=== PATIENT | male | born 1955 | race Caucasian/White ===

== ENCOUNTER 2018-03-08 09:31 | Outpatient (CLI) | payer OTHER | END 2018-03-08 09:32 | disposition home or self-care (01) | LOC: SC 09:31 | PROVIDERS: ATTEND Internal Medicine Pulmonary Disease | DX: G47.33 Obstructive sleep apnea (adult) (pediatric) (principal) | CPT/HCPCS: 99212; 99213 ==

== ENCOUNTER 2019-07-20 11:18 | Outpatient (CLI) | payer OTHER ==
[2019-07-20 12:21] VITALS: BP 126/72
--- NOTE | 2019-07-20 12:21 | SLEEP CARE CONSULTATION ---
Information from patient questionnaire entered by Radha Boewn. I have reviewed and concur with the information entered by Radha Bowen. This document represents the service I personally performed and the decisions made by me, Jumana Doran, RN, MSN, PREPARATOR. History of Present Illness Previous diagnosis: Moderate, Obstructive Sleep Apnea-Hypopnea Syndrome AHI: 15.8 Reason for follow up: annual (last seen 2018) Equipment type: CPAP Equipment obtained from: [employer] (buying supplies online for decreased cost) Mask style: Full face (Air Fit 10) Mask brand: Resmed Backup mask available: Yes Last cushion change: 6 months ago CPAP Compliance Data - Data Reviewed with Patient Average duration of nightly device use: 7.05 Compliance rate %: 98.9 (180 days) Current pressure setting (cmH2O): 5-10 Humidity settin Heated hose settin Average residual AHI: 1.7 Average large leak: 7 min 46 sec Subjective Patient concerns: denies: aerophagia, mask discomfort, air blowing in eyes, mask leak noise, condensation in mask/hose, nasal congestion, dry mouth, nose, throat, epistaxis Observed to snore while using device: No Current pressure setting perceived as: comfortable On therapy, patient: reports: sleeping better, awakening more refreshed, being more awake and alert during the day, more rested overall. denies: drowsiness while driving Initial [place] Sleepiness Scale score: 8 Current [place] Sleepiness Scale score: 6 Allergies and Home Medications Known drug allergies: No Home medication list reviewed: Yes (no changes ) Allergy and home medication list: ibersarton 150mg daily Review of Systems Review of systems same as previous: Yes Physical Exam Blood Pressure: 126/72 Cuff size: long Heart Rate: 74 O2 Saturation: 97 Height: 5 ft 9 in Weight: 258 lb Weight change since last visit: gained 12 pounds Body Mass Index: 38.0 BMI Classification: Obesity Class 2 Impression and Plan 1. Obstructive Sleep Apnea-Hypopnea Syndrome,moderate, with good treatment compliance and good apnea control. On CPAP therapy, the patient has better sleep quality and is more rested overall. He needs a mask that can be quickly taken o ff when called for work in middle of night. I advised him to consider other mask styles shown for convenience. He was also advised to consider letting [employer] cover supplies. [employer] supply replacement list given and cleaning instructions. He cleans his equipment regularly as noted on sheet. I also discussed replacement of his CPAP device is not due until February this year. If the device starts making louder noise before then or any malfunction, please call to replace earlier. I showed him the new device and how the humidity unit has improved with separate knob for the humidity from starting device. Currently his device the humidity setting can be accidentally be changed. Patient has gained weight. 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 His current autoCPAP pressure will accommodate for weight loss. Patient's apnea severity and rationale for treatment to reduce apnea, improve sleep quality and reduce cardiovascular and cerebrovascular events was reviewed. I also reviewed the benefit of consistent device use of CPAP for hypertension. * Continue CPAP pressure at 5-10 cmH2O * consider new masks * Notify me if snoring with mask or feeling that the pressure is too much or too little * Attempt to lose weight * Call this office if any problems using CPAP * Return for follow up in 1 year , or sooner if concerns arise I spent 100% of this visit face to face with the patient with greater than 50% of this was spent time counseling the patient and coordination of care.
== END 2019-07-20 11:19 | disposition home or self-care (01) ==
LOC: SC 11:18
PROVIDERS: ATTEND Nurse Practitioner Family
DX: G47.33 Obstructive sleep apnea (adult) (pediatric) (principal); E66.9 Obesity, unspecified; Z68.38 Body mass index [BMI] 38.0-38.9, adult
CPT/HCPCS: 99212; 99214

== ENCOUNTER 2020-04-05 07:00 | Outpatient (CLI) | payer OTHER | END 2020-04-05 23:59 | disposition home or self-care (01) | LOC: LAB.R 07:00 | PROVIDERS: ATTEND Pediatrics | DX: Z20.828 Contact with and (suspected) exposure to other viral communicable diseases (principal); Z11.59 Encounter for screening for other viral diseases ==

== ENCOUNTER 2020-07-18 08:45 | Outpatient (CLI) | payer OTHER ==
--- NOTE | 2020-07-18 09:29 | SLEEP CARE CONSULTATION ---
Information from patient questionnaire entered by Radha Bowen. I have reviewed and concur with the information entered by Radha Bowen. This document represents the service I personally performed and the decisions made by , Kelly Evangelista ARNP. History of Present Illness Service Date and Time: 07/18/2020 0845 Previous diagnosis: Moderate, Obstructive Sleep Apnea-Hypopnea Syndrome AHI: 15.8 (in 2014) Reason for follow up: annual (last seen 07/2019) Equipment type: CPAP Equipment obtained from: [employer] (getting supplies as needed, gets a lot from online source) Mask style: Full face (Air Fit 10) Backup mask available: Yes (old mask) Last cushion change: 6 months Prior sleep studies: Yes Year and Where: 2014 [facility] Type of Sleep Study: Home sleep study HPI additional information: DONTE SLAUGHTER was diagnosed to have moderate, AHI 15.8, obstructive sleep apnea- hypopnea syndrome and returned today for CPAP therapy annual follow-up. CPAP Compliance Data - Data Reviewed with Patient Average duration of nightly device use: 6 hr 49 min Compliance rate %: 98.3 (60 days) Current pressure setting (cmH2O): 5-10 Humidity settin Heated hose settin Average residual AHI: 1.6 Average large leak: 21 min 50 sec Subjective Missed days of use due to: reports: other (power outages) Patient concerns: reports: dry mouth, nose, throat, other (TMJ discomfort - noticed during dental visits). denies: aerophagia, mask discomfort, air blowing in eyes, mask leak noise, condensation in mask/hose, nasal congestion, epistaxis Observed to snore while using device: No Current pressure setting perceived as: comfortable On therapy, patient: reports: sleeping better, awakening more refreshed, being more awake and alert during the day, more rested overall. denies: drowsiness while driving Initial [place] Sleepiness Scale score: 8 (in 2014) Current [place] Sleepiness Scale score: 7 Allergies and Home Medications Drug allergies reviewed: Yes (NKDA) Home medication list reviewed: Yes (no changes) Review of Systems Review of systems same as previous: Yes (no changes) Physical Exam Heart Rate: 62 O2 Saturation: 97 Height: 5 ft 9 in Weight: 258 lb Body Mass Index: 38.0 BMI Classification: Obese Impression and Plan 1. Obstructive Sleep Apnea-Hypopnea Syndrome, moderate, with good treatment compliance and good apnea control. On CPAP therapy, the patient has better sleep quality and is more rested overall. He has had some mouth dryness. He doesn't think he can adjust the humidity on his machine. It is set at 3 with the heated hose at 5. Oral dryness can be reduced by adjusting humidity setting higher or heated hose lower or by adjusting both settings. Verbal instructions given on how to change humidity and heated hose settings. He has also had some TMJ discomfort in the last year but states this usually occurs after dental appointments. He is not sure if there is a connection to CPAP use. He does not think he has bruxism which could contribute to TMJ discomfort. I encouraged him to have his dentist evaluate to see if he does grind his teeth as a possible cause of this discomfort but it may just be related to the awkward positioning of jaw during dental procedures. Patient to discuss with dentist. The patients CPAP is over 5 years old and of reasonable use. Thus, the CPAP will be updated. The new CPAPs also have a better humidity system which could assist control of patients dryness symptoms. A DWO prescription will be made. Compliance guidelines for new device and follow up discussed. Patient's apnea severity and rationale for treatment to reduce apnea, improve sleep quality and reduce cardiovascular and cerebrovascular events was reviewed. I also reviewed the benefit of consistent device use of CPAP for hypertension. * Continue auto CPAP pressure at 5-10 cmH2O * Update machine * Notify me if snoring with mask or feeling that the pressure is too much or too little * Call this office if any problems using CPAP * Return for follow up 1 month after using new machine, or sooner if concerns arise Counseling Topics: Spare mask Visit Type: In Office Time Spent with Patient (minutes): 29 Provider Statement: I spent 100% of the Face to Face Visit with the patient with greater than 50% spent counseling the patient and coordination of care.
== END 2020-07-18 08:46 | disposition home or self-care (01) ==
LOC: SC 08:45
PROVIDERS: ATTEND Nurse Practitioner Family
DX: G47.33 Obstructive sleep apnea (adult) (pediatric) (principal); E66.9 Obesity, unspecified; Z68.38 Body mass index [BMI] 38.0-38.9, adult
CPT/HCPCS: 99212; 99213

== ENCOUNTER 2020-12-11 08:00 | Outpatient (CLI) | payer OTHER | END 2020-12-11 23:59 | disposition home or self-care (01) | LOC: LAB.R 08:00 | PROVIDERS: ATTEND Urology | DX: Z20.822 Contact with and (suspected) exposure to COVID-19 (principal) ==

== ENCOUNTER 2021-09-12 08:00 | Outpatient (CLI) | payer MEDICARE, BC ==
[2021-09-12 10:17] LABS: BUN - BLOOD UREA NITROGEN 22 mg/dL (6-20); CALCIUM 9.1 mg/dL (8.5-10.3); CARBON DIOXIDE - CO2 27 mmol/L (21-32); CHLORIDE 105 mmol/L (101-111); CHOL/HDL RATIO 2.9 (<5.0); CHOLESTEROL 163 mg/dL; CREATININE 0.9 mg/dL (0.6-1.2); GFR - MDRD 84 (>89); GLUCOSE 116 mg/dL (70-100); HDL CHOLESTEROL 57 mg/dL; LDL CHOLESTEROL,CALCULATED 89 mg/dL; LDL/HDL RATIO 1.6 (<3.6); POTASSIUM 4.5 mmol/L (3.5-5.0); SODIUM 140 mmol/L (135-145); TRIGLYCERIDES 87 mg/dL; VLDL CHOLESTEROL 17 mg/dL
[2021-09-12 11:16] LABS: ESTIMATED AVERAGE GLUCOSE 123 mg/dL (70-100); HEMOGLOBIN A1c% 5.9 % (4.27-6.07)
== END 2021-09-12 23:59 | disposition home or self-care (01) ==
LOC: LAB 08:00
PROVIDERS: ATTEND Family Medicine
DX: R73.9 Hyperglycemia, unspecified (principal)
CPT/HCPCS: 36415; 80048; 80061; 83036; 83721

== ENCOUNTER 2021-10-07 11:37 | Outpatient (CLI) | payer MEDICARE, BC ==
[2021-10-07 12:19] VITALS: BP 140/68
--- NOTE | 2021-10-07 12:19 | SLEEP CARE CONSULTATION ---
Information from patient questionnaire entered by Pili Gutiérrez. I have reviewed and concur with the information entered by Pili Gutiérrez. This document represents the service I personally performed and the decisions made by , Kelly Evangelista ARNP. History of Present Illness Service Date and Time: 10/07/2021 1137 Previous diagnosis: Moderate, Obstructive Sleep Apnea-Hypopnea Syndrome AHI: 15.8 (in 2014) Reason for follow up: annual (LAST SEEN 07/2020 ) Equipment type: CPAP Equipment obtained from: [employer] (gets most of his supplies from online source) Mask style: Full face Mask brand: Weller & Paykel Backup mask available: Yes (old mask) Last cushion change: 6 months Prior sleep studies: Yes Year and Where: 2014 [facility] Type of Sleep Study: Home sleep study HPI additional information: DONTE SLAUGHTER was diagnosed to have moderate, AHI 15.8, obstructive sleep apnea- hypopnea syndrome and returned today for CPAP therapy annual follow-up. Sleep Study - Results Type of Sleep Study: Home sleep study Prior sleep studies: Yes Year and Where: 2014 - [facility] CPAP Compliance Data - Data Reviewed with Patient Average duration of nightly device use: 6 hours 55 minutes Compliance rate %: 98.9 (90 days to ) Current pressure setting (cmH2O): 5-10 Average residual AHI: 1.7 Compliance data discussion: He purchased a Dreamstation to replace his REMstar and has been using it since August 2020. Subjective Patient concerns: reports: other (machine recalled; bright light, has to cover readout). denies: aerophagia, mask discomfort, air blowing in eyes, mask leak noise, condensation in mask/hose, nasal congestion, dry mouth, nose, throat, epistaxis Observed to snore while using device: No Current pressure setting perceived as: comfortable On therapy, patient: reports: sleeping better, being more awake and alert during the day, more rested overall. denies: drowsiness while driving Initial [place] Sleepiness Scale score: 8 (in 2014) Current [place] Sleepiness Scale score: 5 Allergies and Home Medications Known drug allergies: No Drug allergies reviewed: Yes Home medication list reviewed: Yes (no changes) Review of Systems Review of systems same as previous: No (Prostates cancer treatment, gold nanoparticles infusion with light tx 11/25) Physical Exam Vital signs obtained and entered by: Pallavi GUTIÉRREZ MA Blood Pressure: 140/68 (manual) Cuff size: regular Heart Rate: 64 O2 Saturation: 98 Height: 5 ft 9 in Weight: 224 lb 6.4 oz Body Mass Index: 33.1 BMI Classification: Obese Impression and Plan 1. Obstructive Sleep Apnea-Hypopnea Syndrome, moderate, with good treatment compliance and good apnea control. On CPAP therapy, the patient has better sleep quality and is more rested overall. Patient bought a Dreamstation last year in July and then found out about the recall. He put his memory card in the new device but we were unable to obtain a download with his new Dreamstation. He states he uses it every night and his use with last machine was good with good apnea control. I have no doubt that he has continued his compliant use of his new CPAP. He has not been using a ozone or ultraviolet floatlight powder mixer machine on this device. Patient has already registered their device for the recall. Patient denies any black particles seen in machine or hoses, any unusual odors coming from device. Patient has not experienced any physical symptoms such as upper airway irritation, headache, skin or eye irritation, asthma, nausea/vomiting, difficulty breathing or chest pain. If patient is not able to sleep due to waking up choking, gasping for air or other respiratory distress that they may decide to continue using it until it is either replaced or repaired. The patients original CPAP was over 5 years old and of reasonable use. He paid for it on his own and he now has new insurance. Thus, the CPAP will be updated. A DWO prescription will be made. Compliance guidelines for new device and follow up discussed. Patient voiced understanding and agreement with plan. Patient's apnea severity and rationale for treatment to reduce apnea, improve sleep quality and reduce cardiovascular and cerebrovascular events was reviewed. I also reviewed the benefit of consistent device use of CPAP for hypertension. 2. Obesity, unspecified. Patient has lost weight. Currently patients BMI is 33.1. Obesity increases the risk of apnea, CPAP pressure requirements and overall health risks especially cardiovascular and diabetes. Thus patient is advised to continue to try to lose weight. Weight loss can be done with reducing portion size, reducing refined foods and balancing content with vegetables, fruit and whole grain foods. In addition, patient encouraged to get regular exercise. He has increased his exercise regimen and lost about 20 pounds in the last month. * Continue auto CPAP pressure at 5-10 cmH2O * Update device * Notify me if snoring with mask or feeling that the pressure is too much or too little * Attempt to lose weight * Call this office if any problems using CPAP * Return for follow up one month after obtaining new device, or sooner if concerns arise Counseling Topics: Spare mask, Weight loss health impact Visit Type: In Office Time Spent with Patient (minutes): 29 Provider Statement: I spent 100% of the Face to Face Visit with the patient with greater than 50% spent counseling the patient and coordination of care.
== END 2021-10-07 11:38 | disposition home or self-care (01) ==
LOC: SC 11:37
PROVIDERS: ATTEND Nurse Practitioner Family
DX: G47.33 Obstructive sleep apnea (adult) (pediatric) (principal); E66.9 Obesity, unspecified; Z68.33 Body mass index [BMI] 33.0-33.9, adult
CPT/HCPCS: 99213; G0463; 99212

== ENCOUNTER 2021-12-25 08:39 | Outpatient (CLI) | payer MEDICARE, BC ==
[2021-12-25 09:09] VITALS: BP 112/78
--- NOTE | 2021-12-25 09:09 | SLEEP CARE CONSULTATION ---
Information from patient questionnaire entered by Nay Easley MA. I have reviewed and concur with the information entered by Nay Easley MA. This document represents the service I personally performed and the decisions made by , Kelly Evangelista ARNP. History of Present Illness Service Date and Time: 12/25/2021 0839 Previous diagnosis: Moderate, Obstructive Sleep Apnea-Hypopnea Syndrome AHI: 15.8 (in 2014) Reason for follow up: first compliance (brewer 10/16/2021, resmed, ), first compliance after device update Equipment type: CPAP Equipment obtained from: [employer] (gets most of his supplies from online source) Mask style: Full face Mask brand: Weller & SkyTech Backup mask available: Yes (old mask) Last cushion change: 2 months Prior sleep studies: Yes Year and Where: 2014 [facility] Type of Sleep Study: Home sleep study HPI additional information: DONTE SLAUGHTER was diagnosed to have moderate, AHI 15.8, obstructive sleep apnea- hypopnea syndrome and returned today for CPAP therapy first compliance after updating device follow-up. Sleep Study - Results Type of Sleep Study: Home sleep study Prior sleep studies: Yes Year and Where: 2014 - [facility] CPAP Compliance Data - Data Reviewed with Patient Average duration of nightly device use: 7 HOURS 5 MINUTES Compliance rate %: 100 (11/24/2021-12/23/2021; 30/30 days used) Current pressure setting (cmH2O): 5-10 Average residual AHI: 2.4 Central apnea: .2 Obstructive apnea: .7 Hypopnea: .7 Average large leak: 12.6 Subjective Patient concerns: reports: mask discomfort (not as comfortable after 4-5 hours of use), condensation in mask/hose (reduced with decreasing humidity). denies: aerophagia, air blowing in eyes, mask leak noise, nasal congestion, dry mouth, nose, throat, epistaxis, other Observed to snore while using device: No Current pressure setting perceived as: comfortable On therapy, patient: reports: sleeping better, awakening more refreshed, being more awake and alert during the day, more rested overall. denies: drowsiness while driving Initial [place] Sleepiness Scale score: 8 (in 2014) Current [place] Sleepiness Scale score: 6 (12/25/2021) Allergies and Home Medications Known drug allergies: Yes (NKA) Drug allergies reviewed: Yes Home medication list reviewed: Yes (no changes) Review of Systems Review of systems same as previous: Yes (no changes) Physical Exam Vital signs obtained and entered by: SOL ABBOTT Blood Pressure: 112/78 (RESP 16, PULSE 56, RIGHT) Cuff size: wrist Heart Rate: 57 O2 Saturation: 98 (N95 MASK) Height: 5 ft 9 in Weight: 214 lb (CLOTHES) Weight change since last visit: LOST 30, GYM 4 X AND RESTRICTING DIET, Body Mass Index: 31.6 BMI Classification: Obese Impression and Plan 1. Obstructive Sleep Apnea-Hypopnea Syndrome, moderate, with excellent treatment compliance and good apnea control. On CPAP therapy, the patient has better sleep quality and is more rested overall. Patient has noted she that it is helping and he is getting a lot of mask leaks. He does not note any air leaking into his eyes or waking him up with air noise. He uses a full facemask does not change the mask cushion on a monthly basis. Mask leaks can be reduced by washing mask daily and changing mask cushions more frequently to improve mask seal and comfort. He voiced understanding. He will try this but if it does not work he may try to reduce the mask cushion size from large to medium. He has lost about 30 pounds and may need just a smaller mask cushion. He will try changing first. Patient's apnea severity and rationale for treatment to reduce apnea, improve sleep quality and reduce cardiovascular and cerebrovascular events was reviewed. I also reviewed the benefit of consistent device use of CPAP for hypertension. 2. Obesity, unspecified. Patient has lost weight. Currently patients BMI is 31.6. Obesity increases the risk of apnea, CPAP pressure requirements and overall health risks especially cardiovascular and diabetes. Thus patient is advised to continue to try to lose weight. Weight loss can be done with reducing portion size, reducing refined foods and balancing content with vegetables, fruit and whole grain foods. In addition, patient encouraged to get regular exer cise. The patient's CPAP pressure range should accommodate some weight loss. Symptoms to report for additional pressure adjustment discussed. * Continue auto CPAP pressure at 5-10 cmH2O * Notify me if snoring with mask or feeling that the pressure is too much or too little * Attempt to lose weight * Call this office if any problems using CPAP * Return for follow up in 1 year, or sooner if concerns arise Counseling Topics: Spare mask, Weight loss health impact Visit Type: In Office Time Spent with Patient (minutes): 20 Provider Statement: I spent 100% of the Face to Face Visit with the patient with greater than 50% spent counseling the patient and coordination of care.
== END 2021-12-25 08:40 | disposition home or self-care (01) ==
LOC: SC 08:39
PROVIDERS: ATTEND Nurse Practitioner Family
DX: G47.33 Obstructive sleep apnea (adult) (pediatric) (principal); E66.9 Obesity, unspecified; Z68.31 Body mass index [BMI] 31.0-31.9, adult
CPT/HCPCS: 99213; G0463; 99212

== ENCOUNTER 2022-03-17 08:20 | Outpatient (CLI) | payer MEDICARE, BC ==
[2022-03-17 08:37] LABS: BASOPHILS % (AUTO) 0.7 %; EOSINOPHILS # (AUTO) 0.1 10^3/uL (0.0-0.7); EOSINOPHILS % (AUTO) 2.9 %; HGB - HEMOGLOBIN 14.9 g/dL (14.0-18.0); LYMPHOCYTES # (AUTO) 1.6 10^3/uL (1.5-3.5); LYMPHOCYTES % (AUTO) 34.7 %; MEAN CORPUSCULAR HEMOGLOBIN 28.9 pg (27.0-31.0); MEAN CORPUSCULAR HGB CONC 32.4 g/dL (32.0-36.0); MEAN CORPUSCULAR VOLUME 89.3 fL (80.0-94.0); MEAN PLATELET VOLUME 9.9 fL (7.4-11.4); MONOCYTES # (AUTO) 0.4 10^3/uL (0.0-1.0); MONOCYTES % (AUTO) 8.2 %; NEUTROPHILS # (AUTO) 2.4 10^3/uL (1.5-6.6); NEUTROPHILS % (AUTO) 53.1 %; PLT - PLATELET COUNT 168 10^3/uL (130-450); RED BLOOD COUNT 5.15 10^6/uL (4.70-6.10); RED CELL DISTRIBUTION WIDTH 12.7 % (12.0-15.0); WHITE BLOOD COUNT 4.5 x10^3/uL (4.8-10.8)
[2022-03-17 08:56] LABS: ALBUMIN 4.4 g/dL (3.2-5.5); ALBUMIN/GLOBULIN RATIO 1.8 (1.0-2.2); ALKALINE PHOSPHATASE 28 IU/L (42-121); ALT ALANINE AMINOTRANSFERASE 19 IU/L (10-60); AST ASPARTATE AMINOTRANSFERASE 17 IU/L (10-42); BILIRUBIN,TOTAL 0.7 mg/dL (0.2-1.0); BUN - BLOOD UREA NITROGEN 21 mg/dL (6-20); CALCIUM 9.6 mg/dL (8.5-10.3); CARBON DIOXIDE - CO2 30 mmol/L (21-32); CHLORIDE 105 mmol/L (101-111); CHOL/HDL RATIO 2.3 (<5.0); CHOLESTEROL 154 mg/dL; CREATININE 0.9 mg/dL (0.6-1.2); GFR - MDRD 84 (>89); GLUCOSE 113 mg/dL (70-100); HDL CHOLESTEROL 66 mg/dL; LDL CHOLESTEROL,CALCULATED 79 mg/dL; LDL/HDL RATIO 1.2 (<3.6); POTASSIUM 4.5 mmol/L (3.5-5.0); SODIUM 140 mmol/L (135-145); TOTAL PROTEIN 6.9 g/dL (6.7-8.2); TRIGLYCERIDES 43 mg/dL; VLDL CHOLESTEROL 9 mg/dL
[2022-03-17 09:07] LABS: THYROID STIMULATING HORMONE 1.18 uIU/mL (0.34-5.60)
[2022-03-17 12:31] LABS: ESTIMATED AVERAGE GLUCOSE 105 mg/dL (70-100); HEMOGLOBIN A1c% 5.3 % (4.27-6.07)
== END 2022-03-17 08:21 | disposition home or self-care (01) ==
LOC: LAB 08:20
PROVIDERS: ATTEND Family Medicine
DX: I10 Essential (primary) hypertension (principal); M54.50 Low back pain, unspecified; C61 Malignant neoplasm of prostate; E66.9 Obesity, unspecified; R73.9 Hyperglycemia, unspecified; G47.33 Obstructive sleep apnea (adult) (pediatric)
CPT/HCPCS: 36415; 80053; 80061; 83036; 83721; 84153; 84443; 85025

== ENCOUNTER 2022-08-19 14:40 | Outpatient (CLI) | payer MEDICARE, BC | END 2022-08-19 14:41 | disposition home or self-care (01) | LOC: LAB 14:40 | PROVIDERS: ATTEND Urology | DX: C61 Malignant neoplasm of prostate (principal) | CPT/HCPCS: 36415; 84153 ==

== ENCOUNTER 2022-10-26 10:18 | Outpatient (CLI) | payer MEDICARE, BC ==
[2022-10-26 10:28] LABS: BASOPHILS # (AUTO) 0.1 10^3/uL (0.0-0.1); BASOPHILS % (AUTO) 1.3 %; EOSINOPHILS # (AUTO) 0.1 10^3/uL (0.0-0.7); HCT - HEMATOCRIT 47.6 % (42.0-52.0); HGB - HEMOGLOBIN 15.4 g/dL (14.0-18.0); LYMPHOCYTES # (AUTO) 1.7 10^3/uL (1.5-3.5); LYMPHOCYTES % (AUTO) 37.6 %; MEAN CORPUSCULAR HEMOGLOBIN 28.5 pg (27.0-31.0); MEAN CORPUSCULAR HGB CONC 32.4 g/dL (32.0-36.0); MEAN PLATELET VOLUME 10.1 fL (7.4-11.4); MONOCYTES # (AUTO) 0.5 10^3/uL (0.0-1.0); MONOCYTES % (AUTO) 9.9 %; NEUTROPHILS # (AUTO) 2.2 10^3/uL (1.5-6.6); NEUTROPHILS % (AUTO) 47.8 %; PLT - PLATELET COUNT 166 10^3/uL (130-450); RED BLOOD COUNT 5.41 10^6/uL (4.70-6.10); RED CELL DISTRIBUTION WIDTH 12.9 % (12.0-15.0); WHITE BLOOD COUNT 4.6 x10^3/uL (4.8-10.8)
[2022-10-26 11:01] LABS: ALBUMIN 4.1 g/dL (3.2-5.5); ALBUMIN/GLOBULIN RATIO 1.3 (1.0-2.2); ALKALINE PHOSPHATASE 29 IU/L (42-121); ALT ALANINE AMINOTRANSFERASE 18 IU/L (10-60); AST ASPARTATE AMINOTRANSFERASE 17 IU/L (10-42); BUN - BLOOD UREA NITROGEN 18 mg/dL (6-20); CALCIUM 9.6 mg/dL (8.5-10.3); CARBON DIOXIDE - CO2 29 mmol/L (21-32); CHLORIDE 106 mmol/L (101-111); CHOL/HDL RATIO 2.5 (<5.0); CHOLESTEROL 170 mg/dL; GFR - MDRD 74 (>89); GLUCOSE 116 mg/dL (70-100); HDL CHOLESTEROL 68 mg/dL; LDL CHOLESTEROL,CALCULATED 79 mg/dL; LDL/HDL RATIO 1.2 (<3.6); POTASSIUM 4.7 mmol/L (3.5-5.0); SODIUM 140 mmol/L (135-145); TOTAL PROTEIN 7.2 g/dL (6.7-8.2); TRIGLYCERIDES 113 mg/dL; VLDL CHOLESTEROL 23 mg/dL
[2022-10-26 11:10] LABS: THYROID STIMULATING HORMONE 1.28 uIU/mL (0.34-5.60)
== END 2022-10-26 10:19 | disposition home or self-care (01) ==
LOC: LAB 10:18
PROVIDERS: ATTEND Family Medicine
DX: Z79.899 Other long term (current) drug therapy (principal); Z13.220 Encounter for screening for lipoid disorders; Z13.29 Encounter for screening for other suspected endocrine disorder
CPT/HCPCS: 36415; 80053; 80061; 83721; 84443; 85025

== ENCOUNTER 2023-01-14 11:20 | Outpatient (CLI) | payer MEDICARE, BC ==
--- NOTE | 2023-01-14 11:42 | Sleep Patient Instructions ---
Sleep Center Visit Summary - Patient Visit Information Reason for Visit: Annual visit for PAP therapy - Patient Instructions Additional Instructions: You will continue with CPAP therapy with pressure set at 5-10 cmH2O. A supply prescription will be updated with your DME. We encourage you to continue to try to lose weight. Please follow up with the sleep care office in 1 year. - Clinic Information Contact: [facility] [address] [place] [address] [email or web address] T: [phone]
--- NOTE | 2023-01-14 11:48 | SLEEP CARE CONSULTATION ---
Information from patient questionnaire entered by Mya Keen. I have reviewed and concur with the information entered by Mya Keen. This document represents the service I personally performed and the decisions made by , Kelly Evangelista ARNP. History of Present Illness Service Date and Time: 01/14/2023 1120 Previous diagnosis: Moderate, Obstructive Sleep Apnea-Hypopnea Syndrome AHI: 15.8 (in 2014) Reason for follow up: annual (LAST SEEN 12/2021) Equipment type: CPAP (Resmed 11, s/u 10/2021) Equipment obtained from: [employer] (getting supplies as needed) Mask style: Full face Mask brand: Weller & [employer] ([employer]) Backup mask available: Yes (other mask) Last cushion change: once a month Prior sleep studies: Yes Year and Where: 2014 - [facility] Type of Sleep Study: Home sleep study HPI additional information: DONTE SLAUGHTER was diagnosed to have moderate, AHI 15.8, obstructive sleep apnea- hypopnea syndrome and returned today for CPAP therapy annual follow-up. Sleep Study - Results Type of Sleep Study: Home sleep study Prior sleep studies: Yes Year and Where: 2014 - [facility] CPAP Compliance Data - Data Reviewed with Patient Average duration of nightly device use: 7 hours Compliance rate %: 99 (07/08/22-01/03/23; 179/180 days used) Current pressure setting (cmH2O): 5-10 Average residual AHI: 2.4 Central apnea: 0.1 Obstructive apnea: 0.6 Hypopnea: 1.5 Average large leak: 6 L/min Subjective Patient concerns: reports: condensation in mask/hose (occasional), dry mouth, nose, throat (occasional). denies: aerophagia, mask discomfort, air blowing in eyes, mask leak noise, nasal congestion, epistaxis Observed to snore while using device: No Current pressure setting perceived as: comfortable On therapy, patient: reports: sleeping better, awakening more refreshed, being more awake and alert during the day, more rested overall. denies: drowsiness while driving Initial [place] Sleepiness Scale score: 8 (in 2014) Current [place] Sleepiness Scale score: 8 (01/14/23) Allergies and Home Medications Known drug allergies: No Drug allergies reviewed: Yes Home medication list reviewed: Yes (no changes) Review of Systems Review of systems same as previous: Yes (no changes) Physical Exam Vital signs obtained and entered by: MYA Mccarthy MA Blood Pressure: 126/64 (LEFT ARM) Cuff size: regular Heart Rate: 66 O2 Saturation: 98 Height: 5 ft 9 in Weight: 236 lb 3.2 oz Weight change since last visit: 22 lb gain Body Mass Index: 34.9 BMI Classification: Obese Impression and Plan 1. Obstructive Sleep Apnea-Hypopnea Syndrome, moderate, with good treatment compliance and good apnea control. On CPAP therapy, the patient has better sleep quality and is more rested overall. Patient has significant improvement of their sleep apnea and is satisfied with current CPAP therapy.He states he gets occasional condensation or dry mouth but it is not consistent and he is able to deal with it. We will follow-up with him next year. Patient's apnea severity and rationale for treatment to reduce apnea, improve sleep quality and reduce cardiovascular and cerebrovascular events was reviewed. I also reviewed the benefit of consistent device use of CPAP for hypertension. 2. Obesity, unspecified. Currently patients BMI is 34.9. Obesity increases the risk of apnea, CPAP pressure requirements and overall health risks especially cardiovascular and diabetes. Thus patient is advised to lose weight. * Continue auto CPAP pressure at 5-10 cmH2O * Update supplies * Notify me if snoring with mask or feeling that the pressure is too much or too little * Attempt to lose weight * Call this office if any problems using CPAP * Return for follow up in 1 year, or sooner if concerns arise Counseling Topics: Spare mask, Weight loss health impact Visit Type: In Office Time Spent with Patient (minutes): 19 Provider Statement: I spent 100% of the Face to Face Visit with the patient with greater than 50% spent counseling the patient and coordination of care.
[2023-01-14 11:54] VITALS: BP 126/64; O2SAT 98
== END 2023-01-14 11:21 | disposition home or self-care (01) ==
LOC: SC 11:20
PROVIDERS: ATTEND Nurse Practitioner Family
DX: G47.33 Obstructive sleep apnea (adult) (pediatric) (principal); E66.9 Obesity, unspecified; Z68.34 Body mass index [BMI] 34.0-34.9, adult
CPT/HCPCS: 99212; G0463

== ENCOUNTER 2023-03-24 10:08 | Outpatient (CLI) | payer MEDICARE, BC ==
[2023-03-24 10:53] LABS: CALCIUM 9.8 mg/dL (8.5-10.3); CREATININE 0.9 mg/dL (0.6-1.3); POTASSIUM 4.7 mmol/L (3.5-4.5)
[2023-03-24 11:27] LABS: ESTIMATED AVERAGE GLUCOSE 114 mg/dL (70-100); HEMOGLOBIN A1c% 5.6 % (4.27-6.07)
== END 2023-03-24 10:09 | disposition home or self-care (01) ==
LOC: LAB 10:08
PROVIDERS: ATTEND Family Medicine
DX: I10 Essential (primary) hypertension (principal); R73.9 Hyperglycemia, unspecified; C61 Malignant neoplasm of prostate
CPT/HCPCS: 36415; 80048; 83036; 84153

== ENCOUNTER 2023-10-26 10:56 | Outpatient (CLI) | payer MEDICARE, BC ==
--- NOTE | 2023-10-26 16:02 | XRAY Report ---
PROCEDURE: Knee 4+V BL INDICATIONS: EFFUSION OF LEFT KNEE TECHNIQUE: 5 views of the knee(s) were acquired. COMPARISON: None. FINDINGS: Bones: No fractures or dislocations. Right knee demonstrate severe medial and moderate lateral and patellofemoral compartment joint space narrowing and juxta-articular osteophytosis. There is bone-on- bone with subchondral sclerosis in the right medial compartment. Left knee demonstrate moderate to se danuta medial and moderate lateral and patellofemoral compartment joint space narrowing and juxta-artic ular osteophytosis. No suspicious bony lesions. Soft tissues: Trace knee joint effusions bilaterally. No suspicious soft tissue calcifications or ma sses. IMPRESSION: 1.No acute bony abnormality. 2.Bilateral tricompartmental osteoarthritis which is severe in the right medial compartment and moder ate to severe in the left medial compartment. 3.Trace knee joint effusions bilaterally. Reviewed by: Laurel Jackson MD on 10/26/2023 4:01 PM PDT Approved by: Laurel Jackson MD on 10/26/2023 4:01 PM PDT Station ID: [id number]
== END 2023-10-26 10:57 | disposition home or self-care (01) ==
LOC: DI 10:56
PROVIDERS: ATTEND Family Medicine
DX: M25.462 Effusion, left knee (principal); M25.461 Effusion, right knee; M17.0 Bilateral primary osteoarthritis of knee

== ENCOUNTER 2023-11-10 10:17 | Outpatient (CLI) | payer MEDICARE, BC | END 2023-11-10 10:18 | disposition home or self-care (01) | LOC: LAB 10:17 | PROVIDERS: ATTEND Urology | DX: C61 Malignant neoplasm of prostate (principal) | CPT/HCPCS: 36415; 84153 ==

== ENCOUNTER 2024-01-20 10:52 | Outpatient (CLI) | payer MEDICARE, BC ==
--- NOTE | 2024-01-20 11:29 | Sleep Patient Instructions ---
Sleep Center Visit Summary - Patient Visit Information Reason for Visit: Annual follow-up - Patient Instructions Additional Instructions: You will continue with CPAP therapy with pressure set at 5-10 cmH2O. A supply prescription will be updated with your DME supplier. We encourage you to continue to try to lose weight. Please follow up with the sleep care office in 1 year. - Clinic Information Contact: [facility] [address] [place] [address] [email or web address] T: [phone]
--- NOTE | 2024-01-20 11:32 | SLEEP CARE CONSULTATION ---
Information from patient questionnaire entered by Mya Keen. I have reviewed and concur with the information entered by Mya Keen. This document represents the service I personally performed and the decisions made by , Kelly Evangelista ARNP. History of Present Illness Service Date and Time: 01/20/2024 1052 Previous diagnosis: Moderate, Obstructive Sleep Apnea-Hypopnea Syndrome AHI: 15.8 (in 2014) Reason for follow up: annual (LAST SEEN 01/2023) Equipment type: CPAP (Resmed 11, s/u 10/2021) Equipment obtained from: [facility] (getting supplies as needed) Mask style: Full face Mask brand: [employer] Cost Effective Data Backup mask available: Yes Last cushion change: 6 weeks Prior sleep studies: Yes Year and Where: 2014 - [facility] Type of Sleep Study: Home sleep study HPI additional information: DONTE SLAUGHTER was diagnosed to have moderate, AHI 15.8, obstructive sleep apnea- hypopnea syndrome and returned today for CPAP therapy annual follow-up. Sleep Study - Results Type of Sleep Study: Home sleep study Prior sleep studies: Yes Year and Where: 2014 - [facility] CPAP Compliance Data - Data Reviewed with Patient Average duration of nightly device use: 7 HRS 7 MINS Compliance rate %: 99 (01/18/23-01/17/24; 364/365 days used) Current pressure setting (cmH2O): 5-10 Average residual AHI: 2.5 Central apnea: 0.2 Obstructive apnea: 0.8 Hypopnea: 1.2 Average large leak: 5.8 L/min Subjective Missed days of use due to: reports: other (difficulty sleeping occasionally) Patient concerns: reports: condensation in mask/hose, dry mouth, nose, throat, other (DIFFICULTY SLEEPING). denies: aerophagia, mask discomfort, air blowing in eyes, mask leak noise, nasal congestion, epistaxis Observed to snore while using device: No Current pressure setting perceived as: comfortable On therapy, patient: reports: sleeping better, awakening more refreshed, being more awake and alert during the day, more rested overall. denies: drowsiness while driving Initial Crary Sleepiness Scale score: 8 (in 2014) Current Crary Sleepiness Scale score: 7 (01/19/24) Allergies and Home Medications Known drug allergies: No Drug allergies reviewed: Yes Home medication list reviewed: Yes (meloxicam 15 mg prn) Allergy and home medication list: Allergies No Known Drug Allergies Allergy (Verified 01/20/24 11:06) Review of Systems Review of systems same as previous: No (OSTEOPOROSIS) Physical Exam Vital signs obtained and entered by: MYA Mccarthy MA Blood Pressure: 142/58 (LEFT ARM) Cuff size: long Heart Rate: 66 O2 Saturation: 98 Height: 5 ft 9 in Weight: 235 lb Body Mass Index: 34.7 BMI Classification: Obese Impression and Plan 1. Obstructive Sleep Apnea-Hypopnea Syndrome, moderate, with good treatment compliance and good apnea control. On CPAP therapy, the patient has better sleep quality and is more rested overall. Patient has significant improvement of their sleep apnea and is satisfied with current CPAP therapy. He gets occasional oral dryness and increases his humidity which leads to condensation. He is adjusting his machine as needed. Patient denies problems with nasal congestion, epistaxis, skin irritation or aerophagia. Patient's apnea severity and rationale for treatment to reduce apnea, improve sleep quality and reduce cardiovascular and cerebrovascular events was reviewed. I also reviewed the benefit of consistent device use of CPAP for hypertension. 2. Obesity, unspecified. Currently patients BMI is 34.7. Obesity increases the risk of apnea, CPAP pressure requirements and overall health risks especially cardiovascular and diabetes. Thus patient is advised to lose weight. * Continue auto CPAP pressure at 5-10 cmH2O * Update supply prescription. * Notify me if snoring with mask or feeling that the pressure is too much or too little * Attempt to lose weight * Call this office if any problems using CPAP * Return for follow up in 12 months, or sooner if concerns arise Counseling Topics: Spare mask, Weight loss health impact Prescriptions: Device supplies Follow up with Sleep Care in: 1 year Visit Type: In Office Time Spent with Patient (minutes): 20 Provider Statement: I spent 100% of the Face to Face Visit with the patient with greater than 50% spent counseling the patient and coordination of care.
[2024-01-20 11:38] VITALS: BP 142/58; O2SAT 98
== END 2024-01-20 10:53 | disposition home or self-care (01) ==
LOC: SC 10:52
PROVIDERS: ATTEND Nurse Practitioner Family
DX: G47.33 Obstructive sleep apnea (adult) (pediatric) (principal); E66.9 Obesity, unspecified; Z68.34 Body mass index [BMI] 34.0-34.9, adult
CPT/HCPCS: 99213; G0463; 99212